=== PATIENT | male | born 1965 | race Caucasian/White ===

== ENCOUNTER → 2019-04-09 | Outpatient (CLI) | payer OTHER | LOC: CAT 09:11 | DX: M41.85 Other forms of scoliosis, thoracolumbar region (principal); K38.1 Appendicular concretions; J98.4 Other disorders of lung ==

== ENCOUNTER → 2019-05-08 | Outpatient (CLI) | payer OTHER | LOC: ULTRA 09:50 | DX: R94.5 Abnormal results of liver function studies (principal) ==

== ENCOUNTER → 2021-02-07 | Outpatient (CLI) | payer OTHER | LOC: CAT 16:29 | PROVIDERS: ATTEND Internal Medicine Cardiovascular Disease | DX: Z13.6 Encounter for screening for cardiovascular disorders (principal); I25.10 Atherosclerotic heart disease of native coronary artery without angina pectoris; E78.00 Pure hypercholesterolemia, unspecified ==

== ENCOUNTER → 2021-07-12 | Outpatient (CLI) | payer OTHER | LOC: SJCVCIMAG 06:36 | PROVIDERS: ATTEND Internal Medicine Cardiovascular Disease | DX: R10.10 Upper abdominal pain, unspecified (principal); E78.5 Hyperlipidemia, unspecified; E78.00 Pure hypercholesterolemia, unspecified; I10 Essential (primary) hypertension; I48.0 Paroxysmal atrial fibrillation; Z82.49 Family history of ischemic heart disease and other diseases of the circulatory system; Z79.82 Long term (current) use of aspirin; Z79.899 Other long term (current) drug therapy ==